=== PATIENT | female | born 1950 | race Caucasian/White ===

== ENCOUNTER 2021-04-28 10:24 | Emergency (ER) | payer MEDICARE, BC ==
--- NOTE | 2021-04-28 12:08 | EDM.PDOC ---
ED HPI GENERAL MEDICAL PROBLEM - General Chief Complaint: General Stated Complaint: COVID + PSS UTI Time Seen by Provider: 04/28/21 10:39 Source of Information: Reports: Patient History Limitations: Reports: No Limitations - History of Present Illness INITIAL COMMENTS - FREE TEXT/NARRATIVE: The patient presents for cough, generalized weakness, poor appetite and some urinary leakage. She was treated for a UTI last week. She has some urinary leakage at times but no dysuria or hematuria or urgency. Her was diagnosed with COVID 4 days ago. She has symptoms for over 10 days. She has a cough with phlegm. Poor appetite but no vomiting or diarrhea. She feels she is COVID positive. She has a history of lymphoma with spleenectomy years ago. Onset: Gradual Duration: Day(s): (over 10 days) Severity: Moderate Improves with: Reports: None Worsens with: Reports: None Associated Symptoms: Reports: Cough, Shortness of Breath. Denies: Chest Pain, Fever/Chills, Headaches, Nausea/Vomiting - Related Data Allergies Allergy/AdvReac Type Severity Reaction Status Date / Time No Known Allergies Allergy Verified 04/28/21 10:37 Home Meds: Home Meds dexAMETHasone [Dexamethasone] 6 mg PO Q6H #10 tab 04/28/21 [Rx] Past Medical History HEENT History: Reports: Impaired Vision Other HEENT History: wears eyeglasses. 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: Neurological History: Reports: Migraines Immunologic History: Reports: Other (See Below) Other Immunologic History: spleenectomy Oncologic (Cancer) History: Reports: Lymphoma - Infectious Disease History Infectious Disease History: Reports: Chicken Pox, Measles, Novel Coronavirus - Past Surgical History GI Surgical History: Reports: Other (See Below) Other GI Surgeries/Procedures: spleenectomy Female Surgical History: Reports: Hysterectomy Social & Family History - Tobacco Use Tobacco Use Status *Q: Never Tobacco User Second Hand Smoke Exposure: No - Caffeine Use Caffeine Use: Reports: Coffee - Recreational Drug Use Recreational Drug Use: No ED ROS GENERAL - Review of Systems Review Of Systems: See Below Constitutional: Reports: Malaise, Weakness, Fatigue. Denies: Fever, Chills HEENT: Reports: No Symptoms Respiratory: Reports: Shortness of Breath, Cough Cardiovascular: Reports: No Symptoms Endocrine: Reports: No Symptoms GI/Abdominal: Reports: Abdominal Pain, Nausea, Vomiting : Reports: No Symptoms Musculoskeletal: Reports: No Symptoms ED EXAM, GENERAL - Physical Exam Exam: See Below Exam Limited By: No Limitations General Appearance: Alert, No Apparent Distress Ears: Normal External Exam Nose: Normal Inspection Head: Atraumatic, Normocephalic Neck: Normal Inspection Respiratory/Chest: No Respiratory Distress, Decreased Breath Sounds Cardiovascular: Regular Rate, Rhythm, No Edema, No Murmur GI/Abdominal: Soft, Non-Tender, No Organomegaly, No Mass Extremities: Normal Inspection Course - Vital Signs Last Recorded V/S: Last Vital Signs Temp 97.5 F 04/28/21 10:35 Pulse 68 04/28/21 10:35 Resp 14 04/28/21 10:35 BP 142/81 H 04/28/21 10:35 Pulse Ox 94 L 04/28/21 10:35 - Orders/Labs/Meds Orders: Active Orders 24 hr Category Date Time Status Cardiac Monitoring [RC] . DIRECTED Care 04/28/21 11:00 Active Chest 1V Frontal [CR] Stat Exams 04/28/21 11:00 Taken Labs: Laboratory Tests 04/28/21 04/28/21 04/28/21 Range/Units 10:30 11:25 11:40 WBC 5.76 (3.98-10.04) K/mm3 RBC 4.71 (3.98-5.22) M/mm3 Hgb 14.1 (11.2-15.7) gm/dl Hct 41.4 (34.1-44.9) % MCV 87.9 D (79.4-94.8) fl MCH 29.9 (25.6-32.2) pg MCHC 34.1 (32.2-35.5) g/dl RDW Std Deviation 42.1 (36.4-46.3) fL Plt Count 279 (182-369) K/mm3 MPV 10.7 (9.4-12.3) fl Neut % (Auto) 68.2 (34.0-71.1) % Lymph % (Auto) 16.7 L (19.3-51.7) % [place] % (Auto) 14.6 H (4.7-12.5) % Eos % (Auto) 0 L (0.7-5.8) Baso % (Auto) 0.2 (0.1-1.2) % Neut # (Auto) 3.93 (1.56-6.13) K/mm3 Lymph # (Auto) 0.96 L (1.18-3.74) K/mm3 [place] # (Auto) 0.84 H (0.24-0.36) K/mm3 Eos # (Auto) 0.00 L (0.04-0.36) K/mm3 Baso # (Auto) 0.01 (0.01-0.08) K/mm3 Manual Slide Review Normal smear Sodium (136-145) mEq/L Potassium (3.5-5.1) mEq/L Chloride (98-107) mEq/L Carbon Dioxide (21-32) mEq/L Anion Gap (5-15) BUN (7-18) mg/dL Creatinine (0.55-1.02) mg/dL Est Cr Clr Drug Dosing mL/min Estimated GFR (MDRD) (>60) mL/min BUN/Creatinine Ratio (14-18) Glucose (70-99) mg/dL Calcium (8.5-10.1) mg/dL Total Bilirubin (0.2-1.0) mg/dL AST (15-37) U/L ALT (14-59) U/L Alkaline Phosphatase (46-116) U/L C-Reactive Protein (<1.0) mg/dL Total Protein (6.4-8.2) g/dl Albumin (3.4-5.0) g/dl Globulin gm/dL Albumin/Globulin Ratio (1-2) Urine Color Yellow (Yellow) Urine Appearance Clear (Clear) Urine pH 6.5 (5.0-8.0) Ur Specific [place] 1.010 (1.005-1.030) Urine Protein Negative (Negative) Urine Glucose (UA) Negative (Negative) Urine Ketones Negative (Negative) Urine Occult Blood Negative (Negative) Urine Nitrite Negative (Negative) Urine Bilirubin Negative (Negative) Urine Urobilinogen 0.2 (0.2-1.0) Ur Leukocyte Esterase Negative (Negative) Urine RBC 0-5 (0-5) /hpf Urine WBC 0-5 (0-5) /hpf Ur Epithelial Cells 0-5 (0-5) /hpf Urine Bacteria Moderate H (FEW) /hpf Urine Mucus Not seen (FEW) /hpf SARS-CoV-2 RNA (FRANCI) Positive H (NEGATIVE) 04/28/21 Range/Units 11:40 WBC (3.98-10.04) K/mm3 RBC (3.98-5.22) M/mm3 Hgb (11.2-15.7) gm/dl Hct (34.1-44.9) % MCV (79.4-94.8) fl MCH (25.6-32.2) pg MCHC (32.2-35.5) g/dl RDW Std Deviation (36.4-46.3) fL Plt Count (182-369) K/mm3 MPV (9.4-12.3) fl Neut % (Auto) (34.0-71.1) % Lymph % (Auto) (19.3-51.7) % [place] % (Auto) (4.7-12.5) % Eos % (Auto) (0.7-5.8) Baso % (Auto) (0.1-1.2) % Neut # (Auto) (1.56-6.13) K/mm3 Lymph # (Auto) (1.18-3.74) K/mm3 [place] # (Auto) (0.24-0.36) K/mm3 Eos # (Auto) (0.04-0.36) K/mm3 Baso # (Auto) (0.01-0.08) K/mm3 Manual Slide Review Sodium 122 L D (136-145) mEq/L Potassium 3.5 (3.5-5.1) mEq/L Chloride 86 L D (98-107) mEq/L Carbon Dioxide 29 (21-32) mEq/L Anion Gap 10.5 (5-15) BUN 11 (7-18) mg/dL Creatinine 0.7 (0.55-1.02) mg/dL Est Cr Clr Drug Dosing 66.33 mL/min Estimated GFR (MDRD) > 60 (>60) mL/min BUN/Creatinine Ratio 15.7 (14-18) Glucose 102 H (70-99) mg/dL Calcium 8.7 (8.5-10.1) mg/dL Total Bilirubin 0.4 (0.2-1.0) mg/dL AST 31 (15-37) U/L ALT 31 (14-59) U/L Alkaline Phosphatase 73 (46-116) U/L C-Reactive Protein 4.7 H* (<1.0) mg/dL Total Protein 6.4 (6.4-8.2) g/dl Albumin 2.9 L (3.4-5.0) g/dl Globulin 3.5 gm/dL Albumin/Globulin Ratio 0.8 L (1-2) Urine Color (Yellow) Urine Appearance (Clear) Urine pH (5.0-8.0) Ur Specific [place] (1.005-1.030) Urine Protein (Negative) Urine Glucose (UA) (Negative) Urine Ketones (Negative) Urine Occult Blood (Negative) Urine Nitrite (Negative) Urine Bilirubin (Negative) Urine Urobilinogen (0.2-1.0) Ur Leukocyte Esterase (Negative) Urine RBC (0-5) /hpf Urine WBC (0-5) /hpf Ur Epithelial Cells (0-5) /hpf Urine Bacteria (FEW) /hpf Urine Mucus (FEW) /hpf SARS-CoV-2 RNA (FRANCI) (NEGATIVE) Meds: Medications Discontinued Medications Generic Name Dose Route Start Last Admin Trade Name Freq PRN Reason Stop Dose Admin Dexamethasone 6 mg 04/28/21 12:51 Dexamethasone 4 Mg Tab PO 04/28/21 12:52 ONETIME ONE Fluconazole 150 mg 04/28/21 12:51 Fluconazole 150 Mg Tab PO 04/28/21 12:52 ONETIME ONE - Re-Assessments/Exams Free Text/Narrative Re-Assessment/Exam: 04/28/21 12:15 I ordered COVID 19, CXR, labs and UA. Her CXR shows bilateral infiltrates, CBC looks good. Her UA shows no UTI. She is COVID 19 positive. 04/28/21 12:52 Her CXR shows bilateral infiltrates. Her CBC was normal. Her Na was low at 122. Her CRP was elevated at 4.7. Her UA shows no UTI. She is COVID 19 positive. She has good oxygen saturations. She is over 10 days out and not a candidate for the Jedox AG. I will give her diflucan for suspected yeast infection and dexamethasone for the COVID 19. Departure - Departure Time of Disposition: 12:55 Disposition: Home, Self-Care 01 Condition: Good Clinical Impression: COVID-19, Pneumonia due to COVID-19 virus, Hyponatremia, Yeast infection - Discharge Information *PRESCRIPTION DRUG MONITORING PROGRAM REVIEWED*: Not Applicable *COPY OF PRESCRIPTION DRUG MONITORING REPORT IN PATIENT JUAN: Not Applicable Prescriptions: dexAMETHasone [Dexamethasone] 6 mg PO Q6H #10 tab Referrals: PCP,None [Primary Care Provider] - Forms: ED Department Discharge Additional Instructions: Take the dexamethasone 1.5pills daily until gone. Take tylenol or motrin as needed for pain. Drink plenty of fluids. Use more salt the next week. Your sodium was low. Have that rechecked within a week. Sepsis Event Note (ED) - Evaluation Sepsis Screening Result: No Definite Risk - Focused Exam Vital Signs: Vital Signs Temp Pulse Resp BP Pulse Ox 04/28/21 10:35 97.5 F 68 14 142/81 H 94 L - My Orders Last 24 Hours: My Active Orders 04/28/21 11:00 Cardiac Monitoring [RC] . DIRECTED Chest 1V Frontal [CR] Stat - Assessment/Plan Last 24 Hours: My Active Orders 04/28/21 11:00 Cardiac Monitoring [RC] . DIRECTED Chest 1V Frontal [CR] Stat
[2021-04-28] MEDS ORDERED: Fluconazole 150 MG Tab PO ONE (12:51)
[2021-04-28] MEDS ORDERED: Dexamethasone 4 MG Tab PO ONE (12:51)
--- NOTE | 2021-04-28 12:56 | CR ---
Chest: Portable view of the chest was obtained. Comparison: Prior chest x-ray of 03/01/15. Patchy increased density is seen within the left upper and left midlung. Increased density is seen more prominently within the right upper and right lower lung. Heart size and mediastinum are within normal limits for portable technique. Bony structures show minimal scoliosis within the spine as well as minimal degenerative endplate spurring within the spine. Impression: 1. Patchy increased density within both sides of the chest, worse on the right side. Findings highly suspicious for COVID pneumonia. 2. Other findings which are believed to be incidental. Diagnostic code #3
== END 2021-04-28 13:28 | disposition home or self-care (01) ==
LOC: JD.ED 10:24
DX: U07.1 COVID-19 (principal); J12.82 Pneumonia due to coronavirus disease 2019; E87.1 Hypo-osmolality and hyponatremia; B37.9 Candidiasis, unspecified
CPT/HCPCS: 36415; 71045; 80053; 81001; 85025; 86140; 99285; A9270; J8540; U0002

== ENCOUNTER 2021-05-02 09:04 | Emergency (ER) | payer MEDICARE, BC ==
[2021-05-02] MEDS ORDERED: Sodium Chloride 0.9% 10 ML Syringe FLUSH PRN (10:31)
--- NOTE | 2021-05-02 11:04 | CR ---
Chest: Frontal view of the chest was obtained. Comparison: Prior chest x-ray of 04/28/21. Patchy areas of increased density are seen on both sides of the chest. Findings are slightly more prominent within the left lung when comparing to prior exam. Heart size and mediastinum are stable. Bony structures are grossly intact. Impression: 1. Slight worsening within the left chest. Stable change within the right chest. These findings are compatible with COVID pneumonia. Diagnostic code #3
[2021-05-02] MEDS ORDERED: Iopamidol 755 Mg/ML 100 ML Bottle IVPUSH ONE (11:36)
[2021-05-02] MEDS ORDERED: Sodium Chloride 0.9% 100 ML IV SCH (11:45)
[2021-05-02] MEDS: Sodium Chloride 0.9% 10 ML Syringe FLUSH PRN ×2 (12:06→12:18)
--- NOTE | 2021-05-02 12:34 | CT ---
Chest CT Technique: Multiple axial sections through the chest were obtained. Intravenous contrast was utilized. Study has been performed as a pulmonary angiogram protocol. Comparison: No prior chest CT is available. Prior chest x-ray performed earlier on the same day (10:17 AM). Findings: Pulmonary arteries are well opacified. No filling defects are seen to indicate pulmonary embolism. Thoracic aorta shows no aneurysm. Mediastinum shows no adenopathy. No axillary adenopathy is seen. No pericardial thickening is seen. Heart size is slightly enlarged. Cyst is partially seen within the right kidney measuring 3.3 cm. Other portions of the visualized upper abdominal structures show nothing acute. Lung window settings were reviewed. Scattered parenchymal densities are seen throughout both sides of the chest. Bone window settings were reviewed which show scattered degenerative change within the spine. No acute osseous abnormality is appreciated. Impression: 1. No findings of pulmonary embolism. 2. Diffuse change of COVID pneumonia. 3. Other incidental findings as described above. Diagnostic code #3
--- NOTE | 2021-05-02 14:20 | EDM.PDOC ---
ED HPI GENERAL MEDICAL PROBLEM - General Chief Complaint: Respiratory Problem Stated Complaint: JAZMÍN AMB Time Seen by Provider: 05/02/21 09:21 Source of Information: Reports: Patient History Limitations: Reports: No Limitations, Other (ED vital signs reveal a temp of 99.4, pulse of 72, respiratory rate of 24, blood pressure 129/79, pulse ox 95% on oxygen per nonrebreather mask.) - History of Present Illness INITIAL COMMENTS - FREE TEXT/NARRATIVE: 70-year-old female presents the emergency department this morning via [facility] with complaints of increased shortness of breath and worsening Covid symptoms. Patient was recently seen in this emergency department on 04/28/2021 for a complaints of cough, generalized weakness, poor appetite and urinary leakage. She was tested for Covid on that day and did test positive. In the physician report he was stated that she has had symptoms for over 10 days time. She was subsequently sent home on dexamethasone 6 mg daily. She does have a history of lymphoma with splenectomy years ago. The patient did not receive her Covid vaccination. She states that she has increased shortness of breath, decreased appetite, fatigue and diarrhea. She denies any nausea or vomiting. Her was sent home on home O2 and she has been using his home oxygen. She reported that her home oxygen saturations were in the 70s on room air and so she elected to call the ambulance to be transported to the emergency department. - Related Data Allergies Allergy/AdvReac Type Severity Reaction Status Date / Time No Known Allergies Allergy Verified 05/02/21 13:24 Home Meds: Home Meds dexAMETHasone [Dexamethasone] 6 mg PO Q6H #10 tab 04/28/21 [Rx] Past Medical History HEENT History: Reports: Impaired Vision Other HEENT History: wears eyeglasses. Respiratory History: Reports: Pneumonia, Recurrent Other Respiratory History: +) COVID. 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: Neurological History: Reports: Migraines Immunologic History: Reports: Other (See Below) Other Immunologic History: spleenectomy Oncologic (Cancer) History: Reports: Lymphoma - Infectious Disease History Infectious Disease History: Reports: Chicken Pox, Measles, Novel Coronavirus - Past Surgical History GI Surgical History: Reports: Other (See Below) Other GI Surgeries/Procedures: spleenectomy Female Surgical History: Reports: Hysterectomy Social & Family History - Tobacco Use Tobacco Use Status *Q: Never Tobacco User - Caffeine Use Caffeine Use: Reports: Coffee - Recreational Drug Use Recreational Drug Use: No ED ROS GENERAL - Review of Systems Review Of Systems: Comprehensive ROS is negative, except as noted in HPI. ED EXAM, GENERAL - Physical Exam Exam: See Below Exam Limited By: No Limitations General Appearance: Alert, WD/WN, Mild Distress Ears: Normal External Exam, Hearing Grossly Normal Nose: Normal Inspection Throat/Mouth: Normal Inspection, Normal Lips, Normal Voice, No Airway Compromise Head: Atraumatic, Normocephalic Neck: Normal Inspection, Supple Respiratory/Chest: Chest Non-Tender, Respiratory Distress, Decreased Breath Sounds, Crackles (Bilateral bases posteriorly) Cardiovascular: Normal Peripheral Pulses, Regular Rate, Rhythm, No Edema, No Murmur Peripheral Pulses: 2+: Radial (L), Radial (R) GI/Abdominal: Normal Bowel Sounds, Soft, Non-Tender, No Distention (Female) Exam: Deferred Rectal (Female) Exam: Deferred Back Exam: Normal Inspection Extremities: Normal Inspection Neurological: Alert, Oriented, Normal Cognition Psychiatric: Normal Affect, Normal Mood Skin Exam: Warm, Dry, Intact, Normal Color, No Rash Lymphatic: No Adenopathy #1 Interpretation EKG Date: 05/02/21 Time: 10:44 Rhythm: NSR Rate (Beats/Min): 70 [place]: Normal P-Wave: Present QRS: Normal ST-T: Normal QT: Normal EKG Interpretation Comments: Per Dr. Morales interpretation: Sinus rhythm at 70 bpm; RSR prime in V1 or V2, right VCD or RVH, old inferior infarct. Course - Vital Signs Text/Narrative:: As stated above, patient presents with worsening shortness of breath and lower O2 saturations due to Covid. At the time of my exam, the patient is on a nonrebreather mask satting 98 to 99%. She does appear dyspneic at rest. She states that she has had decreased appetite and has not been able to eat or drink much. She is also had some diarrhea. Lung sounds are diminished with some fine crackles noted to the bilateral bases. Will obtain lab studies to include a CBC, CMP, C-reactive protein, magnesium, D-dimer as well as a portable chest x-ray and an EKG. Last Recorded V/S: Last Vital Signs Temp 99.4 F 05/02/21 10:00 Pulse 75 05/02/21 11:30 Resp 16 05/02/21 11:30 BP 125/75 05/02/21 11:30 Pulse Ox 96 05/02/21 11:30 - Orders/Labs/Meds Orders: Active Orders 24 hr Category Date Time Status Sodium Chloride 0.9% [Normal Saline] 100 ml Med 05/02/21 11:45 Active IV ASDIRECTED Sodium Chloride 0.9% [Saline Flush] Med 05/02/21 10:31 Active 10 ml FLUSH ASDIRECTED PRN Sodium Chloride 0.9% [Saline Flush] Med 05/02/21 11:36 Active 10 ml FLUSH ONETIME PRN Saline Lock Insert [OM.PC] Stat Oth 05/02/21 10:31 Ordered Medication Orders Sodium Chloride (Normal Saline) 100 mls @ 60 mls/hr IV ASDIRECTED AUBRIE Last Admin: 05/02/21 12:19 Dose: 60 mls/hr Documented by: TAMMIE Sodium Chloride (Sodium Chloride 0.9% 10 Ml Syringe) 10 ml FLUSH ASDIRECTED PRN PRN Reason: Keep Vein Open Last Admin: 05/02/21 10:39 Dose: 10 ml Documented by: GAMA Sodium Chloride (Sodium Chloride 0.9% 10 Ml Syringe) 10 ml FLUSH ONETIME PRN PRN Reason: Keep Vein Open Last Admin: 05/02/21 12:18 Dose: 10 ml Documented by: Admin: 05/02/21 12:06 Dose: 10 ml Documented by: GAMA Labs: Laboratory Tests 05/02/21 05/02/21 05/02/21 Range/Units 10:43 10:43 10:43 WBC 11.57 H (3.98-10.04) K/mm3 RBC 4.65 (3.98-5.22) M/mm3 Hgb 13.9 (11.2-15.7) gm/dl Hct 40.5 (34.1-44.9) % MCV 87.1 (79.4-94.8) fl MCH 29.9 (25.6-32.2) pg MCHC 34.3 (32.2-35.5) g/dl RDW Std Deviation 42.1 (36.4-46.3) fL Plt Count 269 (182-369) K/mm3 MPV 10.2 (9.4-12.3) fl Neut % (Auto) 83.2 H (34.0-71.1) % Lymph % (Auto) 9.4 L (19.3-51.7) % [place] % (Auto) 6.4 (4.7-12.5) % Eos % (Auto) 0 L (0.7-5.8) Baso % (Auto) 0.3 (0.1-1.2) % Neut # (Auto) 9.63 H (1.56-6.13) K/mm3 Lymph # (Auto) 1.09 L (1.18-3.74) K/mm3 [place] # (Auto) 0.74 H (0.24-0.36) K/mm3 Eos # (Auto) 0.00 L (0.04-0.36) K/mm3 Baso # (Auto) 0.03 (0.01-0.08) K/mm3 Manual Slide Review Abnormal smear D-Dimer, Quantitative 18.30 H (0.19-0.50) mg/L Sodium 126 L (136-145) mEq/L Potassium 4.1 (3.5-5.1) mEq/L Chloride 91 L (98-107) mEq/L Carbon Dioxide 26 (21-32) mEq/L Anion Gap 13.1 (5-15) BUN 16 (7-18) mg/dL Creatinine 0.6 (0.55-1.02) mg/dL Est Cr Clr Drug Dosing 77.38 mL/min Estimated GFR (MDRD) > 60 (>60) mL/min BUN/Creatinine Ratio 26.7 H (14-18) Glucose 124 H (70-99) mg/dL Calcium 8.5 (8.5-10.1) mg/dL Magnesium 2.2 (1.8-2.4) mg/dL Total Bilirubin 0.4 (0.2-1.0) mg/dL AST 25 (15-37) U/L ALT 23 (14-59) U/L Alkaline Phosphatase 59 (46-116) U/L C-Reactive Protein 6.7 H* (<1.0) mg/dL Total Protein 6.0 L (6.4-8.2) g/dl Albumin 2.3 L (3.4-5.0) g/dl Globulin 3.7 gm/dL Albumin/Globulin Ratio 0.6 L (1-2) Meds: Medications Generic Name Dose Route Start Last Admin Trade Name Freq PRN Reason Stop Dose Admin Sodium Chloride 100 mls @ 60 mls/hr 05/02/21 11:45 05/02/21 12:19 Normal Saline IV 60 mls/hr ASDIRECTED AURBIE Administration Sodium Chloride 10 ml 05/02/21 10:31 05/02/21 10:39 Sodium Chloride 0.9% 10 Ml Syringe FLUSH 10 ml ASDIRECTED PRN Administration Keep Vein Open Sodium Chloride 10 ml 05/02/21 11:36 05/02/21 12:18 Sodium Chloride 0.9% 10 Ml Syringe FLUSH 10 ml ONETIME PRN Administration Keep Vein Open Discontinued Medications Generic Name Dose Route Start Last Admin Trade Name Freq PRN Reason Stop Dose Admin Iopamidol 100 ml 05/02/21 11:36 05/02/21 12:18 Iopamidol 755 Mg/Ml 100 Ml Bottle IVPUSH 05/02/21 11:37 100 ml ONETIME ONE Administration - Re-Assessments/Exams Free Text/Narrative Re-Assessment/Exam: 05/02/21 1055 Radiologist impression frontal view of the chest: 1. Slight worsening within the left chest. Stable change within the right chest. These findings are compatible with Covid pneumonia. 05/02/21 1100 Hematology reveals a WBC of 11.57, hemoglobin 13.9, hematocrit 40.5, platelet count 269 Coagulation reveals a D-dimer of 18.30 Chemistry reveals a sodium of 126, potassium 4.1, chloride 91, anion gap 13.1, BUN 16, creatinine 0.6, glucose 124, magnesium 2.2, C-reactive protein 6.7 We will obtain a CTA of the lungs to rule out PE. 05/02/[address] of the chest: 1. No findings of pulmonary embolism. 2. Diffuse change of Covid pneumonia. 3. Other incidental findings as described above. 05/02/21 14:26 Plan will be to have nursing staff attempt to titrate her oxygen down. Sodium levels are low. We will attempt to get the patient drinking electrolyte replacements as IV fluids are contraindicated with Covid. Discussed the patient's test results with her also plan of care to decrease her oxygen and potentially get her to go home on home O2. Her sister is here in the waiting room and has agreed to take the patient's home if it works out and we can titrate her oxygen. 05/02/21 14:27 Spoke with the patient's daughter and updated her on the plan of care as well. 05/02/21 15:08 Nursing staff notifies me that the patient's O2 saturations are 92% on 4 L of oxygen per nasal cannula. She will be discharged home on home oxygen and she has been instructed to continue taking her dexamethasone. She has also been given strong return precautions. Departure - Departure Time of Disposition: 15:14 Disposition: Home, Self-Care 01 Condition: Fair Clinical Impression: Hypoxemia, COVID-19 - Discharge Information Referrals: PCP,None [Primary Care Provider] - Forms: ED Department Discharge Additional Instructions: You were seen in the emergency department today with increasing shortness of breath and low oxygen saturations at home. You were evaluated in the emergency department. Tests included labs, EKG, chest x-ray and CT scan of your lungs. Lab test did show that your sodium level is low however it is contraindicated to give you IV fluids at this time due to Covid. You will need to drink plenty of electrolyte replacements such as Gatorade or Powerade. Eat small frequent meals. It would be a good idea to drink some protein shakes to have your caloric and protein needs met. Chest x-ray was completed which does show pneumonia however as discussed this is viral in origin due to the Covid virus. We cannot give you antibiotics to treat this as antibiotics only treat bacterial infections. Your EKG was normal. CT scan was completed to rule out blood clot in your lungs and this test was negative. You do not have any blood clots at this time. Your oxygen level was at 92% on 4 L of oxygen. You will be discharged home on home oxygen. Continue taking your dexamethasone steroid as prescribed until it is gone. Recommend laying on your stomach as much as possible as this has been proven to help your oxygen levels and with the Covid symptoms. Continue to check your oxygen levels at home. Do not hesitate returning to the emergency department should your condition worsen or change. Sepsis Event Note (ED) - Evaluation Sepsis Screening Result: No Definite Risk - Focused Exam Vital Signs: Vital Signs Temp Pulse Resp BP Pulse Ox 05/02/21 11:30 75 16 125/75 96 05/02/21 10:00 99.4 F 72 24 H 129/79 95 - My Orders Last 24 Hours: My Active Orders 05/02/21 10:31 Sodium Chloride 0.9% [Saline Flush] 10 ml FLUSH ASDIRECTED PRN Saline Lock Insert [OM.PC] Stat 05/02/21 11:36 Sodium Chloride 0.9% [Saline Flush] 10 ml FLUSH ONETIME PRN 05/02/21 11:45 Sodium Chloride 0.9% [Normal Saline] 100 ml IV ASDIRECTED - Assessment/Plan Last 24 Hours: My Active Orders 05/02/21 10:31 Sodium Chloride 0.9% [Saline Flush] 10 ml FLUSH ASDIRECTED PRN Saline Lock Insert [OM.PC] Stat 05/02/21 11:36 Sodium Chloride 0.9% [Saline Flush] 10 ml FLUSH ONETIME PRN 05/02/21 11:45 Sodium Chloride 0.9% [Normal Saline] 100 ml IV ASDIRECTED
== END 2021-05-02 16:00 | disposition home or self-care (01) ==
LOC: JD.ED 09:04
DX: U07.1 COVID-19 (principal)
CPT/HCPCS: 36415; 71045; 71045-26; 71275; 71275-26; 80053; 83735; 85025; 85379; 86140; 93005; 99285-25; Q9967